=== PATIENT | female | born 1965 | race Hispanic/Latino ===

== ENCOUNTER → 2018-09-10 | Outpatient (CLI) | payer OTHER ==
[~2018-09-10] MED LIST: BIAXIN250 MG; BIAXIN500 MG PO; CITALOPRAM HBR20 MG PO; DOXYCYCLINE HYC50 MG PO; GABAPENTIN PO; GLIMEPIRIDE4 MG PO; HYDROCODONE-AP1 EAC2 PO; IBUPROFEN400 MG PO; LISINOPRIL10 MG PO; LISINOPRIL5 MG PO; METFORMIN HCL500 M3 PO; METFORMIN HCL500 MG PO; OMEPRAZOLE20 M1 PO; PRAVASTATIN SOD40 MG PO; SIMVASTATIN10 MG PO; TOBRADEX EYE O3.5 GM OS; TYLENOL # 31 EA PO; Z.0.AMARYL4 MG PO; Z.0.ATENOLOL50 MG PO; Z.0.PRINIVIL5 MG PO
--- NOTE | 2018-09-11 09:09 | Diagnostic Imaging Report ---
#[id number] - MGDXBIL #BILATERAL DIGITAL DIAGNOSTIC MAMMOGRAM WITH CAD: 09/10/2018 CLINICAL: Palpable lump right breast. No prior exams were available for comparison. Current study contains 12 films. There are scattered fibroglandular elements in both breasts. Current study was also evaluated with a Computer Aided Detection (CAD) system. A palpable mass marker in the superior aspect of the right breast corresponds to tissue asymmetry. There are scattered calcifications in both breasts. No significant masses, calcifications, or other findings are seen in either breast. IMPRESSION: INCOMPLETE: NEEDS ADDITIONAL IMAGING EVALUATION Indeterminate tissue asymmetry in the superior aspect of the right breast with adjacent mass marker. Ultrasound is recommended and will be performed today to follow this exam. Stef Cordoba Jr., D.O. cw/:09/10/2018 17:26:42 Edge Setter: Jessica HERNANDEZ)(Gen), [facility] letter sent: Additional Imaging Needed Mammogram BI-RADS: 0 Indeterminate
--- NOTE | 2018-09-11 09:09 | Diagnostic Imaging Report ---
#[id number] - USBRELIMRT ULTRASOUND OF THE RIGHT BREAST : 09/10/2018 Comparison is made to exam dated: 09/10/2018 mammogram - [facility]. Focused color flow and real-time ultrasound were performed on the right breast in the area of palpable abnormality. Corresponding to the palpable finding is a well defined hyperechoic mass that appears soft to palpation and measures 2.3 x 1.1 x 2.4 cm. This most likely represents a lipoma. IMPRESSION: PROBABLY BENIGN - FOLLOW-UP RECOMMENDED A follow-up ultrasound in 6 months is recommended to maintain stability. The patient was informed of these findings and the need for 1 time followup. Stef Cordoba Jr., D.O. cw/:09/10/2018 17:31:00 Set Builder: Laxmi Escobar RDMS, [facility] letter sent: Followup Recommended Ultrasound BI-RADS: 3 Probably benign
== END ==
LOC: MAMMO 14:47
PROVIDERS: ATTEND Internal Medicine
DX: N63.10 Unspecified lump in the right breast, unspecified quadrant (principal)
CPT/HCPCS: 77066

== ENCOUNTER → 2020-12-03 | Outpatient (CLI) | payer OTHER | LOC: MAMMO 10:29 | PROVIDERS: ATTEND Internal Medicine | DX: Z12.31 Encounter for screening mammogram for malignant neoplasm of breast (principal) | CPT/HCPCS: 77067 ==

== ENCOUNTER → 2024-02-29 | Outpatient (REF) | payer OTHER | LOC: MAMMO 10:33 | PROVIDERS: ATTEND Internal Medicine | DX: Z12.31 Encounter for screening mammogram for malignant neoplasm of breast (principal); M85.88 Other specified disorders of bone density and structure, other site | CPT/HCPCS: 77067; 77080 ==